=== PATIENT | female | born 1955 | race Caucasian/White ===

== ENCOUNTER 2018-10-07 05:44 | Inpatient (IN) | payer BC ==
--- NOTE | 2018-09-24 20:28 | HP ---
HISTORY AND PHYSICAL: DATE OF ADMISSION/SURGERY: 10/07/18 DATE OF OFFICE VISIT: 09/24/18 SURGEON: Fern Reed MD* (dictated by PENNY Peterson). PROCEDURE: Bilateral total knee arthroplasty. CHIEF COMPLAINT: Bilateral knee pain. HISTORY OF PRESENT ILLNESS: Ms. Reese is a 63-year-old female with bilateral knee pain secondary to end-stage osteoarthritis. She has failed conservative treatment and elected to proceed with a bilateral total knee arthroplasty. PAST MEDICAL HISTORY: RA, autoimmune inflammatory polyarthropathy, essential thrombocythemia, hypertension, and hypothyroidism. PAST SURGICAL HISTORY: Hysterectomy, hernia repair, cervical fusion, trigger thumb release, right knee scope and carpal tunnel release. CURRENT MEDICATIONS: 1. Fluticasone nasal spray as needed. 2. Flexeril 5 mg 3 times a day as needed. 3. Folic acid. 4. Colace. 5. Pantoprazole sodium 40 mg twice a day. 6. Levothroid 112 mcg daily. 7. Sudafed twice a day as needed. 8. FiberCon. 9. Benazepril 20 mg daily. 10. BuSpar 15 mg half a tablet 3 times a day. 11. Tylenol With Codeine every 6 hours as needed. 12. Verapamil 180 mg daily. 13. Ipratropium bromide 2 sprays in each nostril twice a day. 14. Gabapentin 300 mg 3 times a day. 15. Iron 65 mg daily. 16. Vitamin C. 17. Hydrea 500 mg 2 capsules twice a day. 18. Montelukast sodium 10 mg daily. 19. Mucinex as needed daily. 20. Multivitamin. 21. Valtrex. ALLERGIES: To DEMEROL, VIOXX, HUMIRA, LYRICA, CYMBALTA, and SIMPONI. FAMILY HISTORY: Diabetes, COPD, and RA. SOCIAL HISTORY: She is a 63-year-old female. She lives with her . She does not smoke or use drugs. Denies use of alcohol. REVIEW OF SYSTEMS: A complete 14-point review of systems was reviewed with the patient. It was positive for essential thrombocythemia as well as hypothyroidism. She denies history of DVT, PE, hepatitis, HIV, or anesthesia problems. PHYSICAL EXAMINATION GENERAL: She is well developed, well nourished, in no acute distress. VITAL SIGNS: She stands 5 feet 3 inches tall, weighs 215 pounds, her blood pressure is 146/90, and her heart rate is 96. HEENT: Normocephalic, atraumatic. NECK: Supple. No palpable lymph nodes. PULMONARY: The lungs are clear to auscultation bilaterally. CARDIO: Regular rate and rhythm. Strong S1, S2. ABDOMEN: Soft, nontender, nondistended. MUSCULOSKELETAL: Bilateral lower extremities: The skin is intact. There are no open wounds or abrasions. There is moderate bilateral joint effusion. She has some tenderness over the medial and lateral joint line. Range of motion is 10 to 120 degrees of both knees with significant patellofemoral crepitus. She has a 2+ dorsalis pedis pulses, intact sensation in her lower extremity. Muscle group strengths are intact at 5/5. NEUROLOGICAL: She is alert, and oriented x3. ASSESSMENT AND PLAN: Ms. Reese is a 63-year-old female with bilateral knee pain secondary to end-stage osteoarthritis. She has failed conservative treatment and elected to proceed with a bilateral total knee arthroplasty, the surgery is scheduled for 10/07/[address] Reed discussed the risks and the benefits of the surgery at today's visit and all of her questions were answered. She will follow up with Dr. Reed 2 weeks after the surgery. PENNY PETERSON [id number]/CPS #: [id number] MTDD
[~2018-10-07 05:44] MED LIST: Buffered Lidocaine 0.9% SYRIN* 5 ML/SYR SYRINGE INTRADERM ONE; Tranexamic Acid 1,000 MG in NS 0.9% 50 ML* (outpatient use) IV SCH
[2018-10-07] MEDS ORDERED: Propofol* 10 MG/ML 20 ML BTL ONE (06:37)
[2018-10-07] MEDS ORDERED: Lidocaine 2% PF * 5 ML VIAL ONE ×2 (06:38→08:35)
[2018-10-07] MEDS ORDERED: Rocuronium* 10 MG/ML VIAL ONE ×2 (06:38→10:35)
[2018-10-07] MEDS ORDERED: EPINEPHRINE 1 MG/ML 1 ML VIAL ONE (06:41)
[2018-10-07] MEDS ORDERED: ROPIVACAINE 5 MG/ML 30 ML BTL (0.5%) ONE (06:41)
[2018-10-07] MEDS ORDERED: ceFAZolin 2 GM PREMIX in ORs 2 GM/50 ML BAG IVPB ONE (07:44)
[2018-10-07] MEDS ORDERED: fentaNYL* 50 MCG/ML 2 ML VIAL (100 MCG VIAL) ONE (08:12)
[2018-10-07] MEDS ORDERED: Midazolam* 1 MG/ML 2 ML VIAL (2 MG) ONE (08:12)
[2018-10-07] MEDS ORDERED: Phenylephrine INJ* 10 MG/ML 1 ML VIAL (10 MG) ONE (08:18)
[2018-10-07] MEDS ORDERED: Scopolamine 1.5 mg* PATCH ONE (08:35)
[2018-10-07] MEDS ORDERED: Bupivacaine 0.5% PF 10 ML VIAL INJ ONE (08:59)
[2018-10-07] MEDS ORDERED: Metoclopramide IV* 5 MG/ML 2 ML VIAL ONE (09:57)
[2018-10-07] MEDS ORDERED: Ondansetron INJ* 2 MG/ML VIAL ONE (09:57)
[2018-10-07] MEDS ORDERED: Dexamethasone IV* 4 MG/ML 1 ML (4 MG) ONE (09:57)
[2018-10-07] MEDS ORDERED: Ketorolac INJ* 30 MG/ML 1 ML VIAL ONE (09:57)
[2018-10-07] MEDS ORDERED: KETAMINE HCL* 50 MG/ML 10 ML VIAL ONE (10:15)
[2018-10-07] MEDS ORDERED: HYDROmorphone INJ1* 1 MG/ML SYRINGE ONE ×3 (12:32→15:04)
[2018-10-07] MEDS ORDERED: Acetaminophen IV 1GM/100ML * 100 ML ONE (12:37)
[2018-10-07] MEDS ORDERED: Neostigmine Methylsulfate* 2 MG/2 ML SYRINGE ONE (13:04)
[2018-10-07] MEDS ORDERED: Sugammadex * 200 MG/2 ML VIAL IV PUSH ONE (13:05)
[2018-10-07] MEDS ORDERED: VASOPRESSIN 20 UNITS/ML 1 ML VIAL ONE (13:30)
[2018-10-07] MEDS ORDERED: DiMENhydriNATE IV* 50 MG/ML VIAL IV PUSH PRN (13:40)
[2018-10-07] MEDS ORDERED: Naloxone* 0.4 MG/ML 1 ML VIAL IV PRN (13:40)
[2018-10-07] MEDS ORDERED: oxyCODONE/Acetamin 5/325 MG* TAB PO PRN (14:32)
[2018-10-07] MEDS ORDERED: Polyethylene Glycol 3350* 17 GM PACKET PO PRN (14:32)
[2018-10-07] MEDS ORDERED: Cyclobenzaprine TAB* 10 MG PO PRN (14:32)
[2018-10-07] MEDS ORDERED: diPHENhydraMINE PO* 25 MG PO PRN (14:32)
[2018-10-07] MEDS ORDERED: Bisacodyl SUPP* 10 MG SUPP PR PRN (14:32)
[2018-10-07] MEDS ORDERED: traZODone TAB* 50 MG TAB PO PRN (14:32)
[2018-10-07] MEDS ORDERED: Ondansetron INJ* 2 MG/ML VIAL IV PRN (14:32)
[2018-10-07] MEDS ORDERED: Ondansetron ODT TAB* 4 MG PO PRN (14:32)
[2018-10-07] MEDS ORDERED: diPHENhydraMINE IV* 50 MG/ML 1 ml VIAL (BENADRYL) IV PRN (14:32)
[2018-10-07] MEDS ORDERED: busPIRone TAB* 15 MG PO PRN (14:45)
[2018-10-07] MEDS ORDERED: Furosemide TAB* 40 MG PO PRN (14:45)
[2018-10-07] MEDS ORDERED: Pseudoephedrine TAB* 30 MG PO PRN (14:45)
[2018-10-07] MEDS: HYDROmorphone INJ1* 1 MG/ML SYRINGE IV PRN ×2 (14:46→14:56)
[2018-10-07] MEDS ORDERED: oxyCODONE/Acetamin 5/325 MG* TAB ONE (14:51)
[2018-10-07] MEDS: oxyCODONE/Acetamin 5/325 MG* TAB PO PRN ×4 (14:54→21:53)
[2018-10-07] MEDS ORDERED: Acetaminophen TAB* 325 MG PO SCH (15:00)
--- NOTE | 2018-10-07 16:05 | PN ---
Progress Note - Progress Note Date of Service: 10/07/18 SOAP: Patient seen and examined at bedside in pacu, she is POD [address] sp [address] TK with Dr Reed. She had general anesthesia. BL LE with DF/PF intact, DP2+, sensation intact distally. DVT prophylaxis is eliquis 2.5 mg po BID
[2018-10-07] MEDS: Morphine VIAL* 4 MG/ML VIAL (1 ml vial) IV PRN (17:27)
[2018-10-07] MEDS: traMADol TAB* 50 MG PO PRN (18:35)
[2018-10-07] MEDS: oxyCODONE TAB* 5 MG TAB PO PRN ×2 (19:37→23:46)
[2018-10-07] MEDS: ceFAZolin 1 GM in Dextrose (*) 1 GM/50 ML BAG IVPB SCH (19:44)
[2018-10-07] MEDS: Acetaminophen TAB* 325 MG PO SCH (20:23)
[2018-10-07] MEDS: Omeprazole CAP* 20 MG PO SCH (21:51)
[2018-10-07] MEDS: Gabapentin CAP(*) 300 MG PO SCH (21:52)
[2018-10-07] MEDS: Docusate CAP* 100 MG PO SCH (21:52)
[2018-10-07] MEDS: HydroxyUREA CAP* 500 MG CAP PO SCH (21:54)
[2018-10-07] MEDS: Apixaban* 2.5 MG TAB PO SCH (21:54)
[2018-10-07] MEDS: Verapamil SR CAP* 180 MG PO SCH (21:55)
[2018-10-07] MEDS: Magnesium Hydroxide LIQ* 30 ML UDC PO PRN ×2 (21:56→21:59)
[2018-10-07] MEDS: Magnesium Hydroxide LIQ* 30 ML UDC PO SCH (22:17)
[2018-10-07] MEDS: IPRATROPIUM BR 0.06% BOTH NARES SCH (22:20)
[2018-10-08] MEDS: traMADol TAB* 50 MG PO PRN ×2 (01:29→10:20)
[2018-10-08] MEDS: oxyCODONE/Acetamin 5/325 MG* TAB PO PRN ×5 (02:45→20:55)
[2018-10-08] MEDS: ceFAZolin 1 GM in Dextrose (*) 1 GM/50 ML BAG IVPB SCH ×2 (04:25→11:47)
[2018-10-08] MEDS: oxyCODONE TAB* 5 MG TAB PO PRN ×4 (04:26→23:24)
[2018-10-08] MEDS: Acetaminophen TAB* 325 MG PO SCH ×3 (04:29→21:05)
[2018-10-08 06:03] LABS: Hematocrit 30 % (35-47); Hemoglobin 10.9 g/dl (12.0-16.0); Mean Platelet Volume 6.9 fL (7.4-10.4); Platelet Count 427 10^3/ul (150-450)
[2018-10-08] MEDS: Levothyroxine TAB* 112 MCG TAB PO SCH (06:13)
[2018-10-08 07:14] LABS: EGFR Non-African American 91.8 (>60)
[2018-10-08] MEDS: IPRATROPIUM BR 0.06% BOTH NARES SCH ×2 (08:25→20:55)
[2018-10-08] MEDS: HydroxyUREA CAP* 500 MG CAP PO SCH ×2 (08:26→20:54)
[2018-10-08] MEDS: Magnesium Hydroxide LIQ* 30 ML UDC PO SCH ×2 (08:27→20:55)
[2018-10-08] MEDS: Apixaban* 2.5 MG TAB PO SCH ×2 (08:27→20:54)
[2018-10-08] MEDS: Omeprazole CAP* 20 MG PO SCH ×2 (08:27→20:55)
[2018-10-08] MEDS: Docusate CAP* 100 MG PO SCH ×2 (08:27→20:54)
[2018-10-08] MEDS: Cholecalciferol TAB* 1000 UNITS PO SCH (08:27)
[2018-10-08] MEDS: Folic Acid TAB* 1 MG PO SCH (08:27)
[2018-10-08] MEDS: Gabapentin CAP(*) 300 MG PO SCH ×3 (08:27→20:54)
[2018-10-08] MEDS: Montelukast Sodium TAB* 10 MG PO SCH (08:27)
--- NOTE | 2018-10-08 09:24 | PN ---
Progress Note - Progress Note Date of Service: 10/08/18 SOAP: Subjective: [] Patient seen and examined at bedside. She feels well without CP, SOB, dizziness, nausea. Her bilateral knee pain is present but tolerable at this time. HR has been elevated since PACU, patient is without CP, SOB, feeling of irregular beats. Objective: []General: Well appearing, NAD BL LE; Dressings CDI, thighs soft, DF/PF intact, DP2+, sensation intact to light touch distally. Calves are supple and nontender without erythema, edema or palpable cords. Radial pulse is fast but regular to palpation Assessment: []POD 1 sp bilateral total knee replacements Plan: []WBAT PT/OT Eliquis 2.5 mg po BID x 30 days Optimize pain control discussed with nursing Medicine consult in place Vital Signs Temp 98.0 F 10/08/18 07:19 Pulse 124 10/08/18 07:31 Resp 18 10/08/18 08:27 BP 166/68 10/08/18 07:19 Pulse Ox 96 10/08/18 07:19 Intake & Output 10/07/18 10/08/18 10/08/18 18:59 06:59 18:59 Intake Total 2150 1716 480 Output Total 1600 925 Balance 550 791 480 Weight 210 lb Intake: IV Fluids 2150 896 LR 2100 896 NS 50ML, Cefazolin 2G 50 IVPB 50 ABX - CEFAZOLIN 50 Oral 770 480 Output: Patino 900 925 Estimated Blood Loss 700 Other: Estimated Void Medium Estimated Blood Loss L:300ML, R:400ML Comment Laboratory Last Values Hgb 10.9 g/dl (12.0-16.0) L 10/08/18 05:37 Hct 30 % (35-47) L 10/08/18 05:37 Plt Count 427 10^3/ul (150-450) 10/08/18 05:37 MPV 6.9 fL (7.4-10.4) L 10/08/18 05:37 Sodium 134 mmol/L (135-145) L 10/08/18 05:37 Potassium 3.4 mmol/L (3.5-5.0) L 10/08/18 05:37 Chloride 99 mmol/L (101-111) L 10/08/18 05:37 Carbon Dioxide 27 mmol/L (22-32) 10/08/18 05:37 Anion Gap 8 mmol/L (2-11) 10/08/18 05:37 BUN 13 mg/dL (6-24) 10/08/18 05:37 Creatinine 0.65 mg/dL (0.51-0.95) 10/08/18 05:37 Est GFR ( Amer) 111.0 (>60) 10/08/18 05:37 Est GFR (Non-Af Amer) 91.8 (>60) 10/08/18 05:37 BUN/Creatinine Ratio 20.0 (8-20) 10/08/18 05:37 Glucose 117 mg/dL (70-100) H 10/08/18 05:37 Calcium 8.8 mg/dL (8.6-10.3) 10/08/18 05:37
[2018-10-08] MEDS: Morphine VIAL* 4 MG/ML VIAL (1 ml vial) IV PRN ×2 (10:20→14:58)
--- NOTE | 2018-10-08 11:58 | OP ---
OPERATIVE NOTE: DATE OF OPERATION: 10/07/18 DATE OF : 53 ATTENDING SURGEON: Fern Reed MD AUT[employer] BODY SHOP MANAGER: PENNY Esteves. Ms. Epstein did help throughout the procedure with preparation of the legs, wound retraction, julia pulation of the knees, and wound closures. ANESTHESIOLOGIST: Dr. Salcedo. ANESTHESIA: General with bilateral adductor canal block. PRE-OP DIAGNOSIS: Severe end-stage degenerative osteoarthritis of the bilateral knees as well as rhe umatoid arthritic changes. POST-OP DIAGNOSIS: Severe end-stage degenerative osteoarthritis of the bilateral knees as well as rh eumatoid arthritic changes. OPERATIVE PROCEDURE: Bilateral total knee arthroplasty. COMPLICATIONS: None. ESTIMATED BLOOD LOSS: 700 mL total. TOURNIQUET TIME: Left knee 45 minutes; right knee 51 minutes. SPECIMENS: Cartilage and bone from each side of the knee, sent to Pathology. HARDWARE USED: This is cemented [employer] total knee arthroplasty hardware. Two packages of S implex bone cement were used for each side. For the right knee, a size 5 Oxinium posterior stabilize d Legion femoral component. For the tibia, a size 3 right tibial base plate, Elisha II. For the in sert, a 13-mm constrained articular insert size 3-4. For the patella, a 32-mm three-peg all-poly pat gui. For the left knee, a left posterior stabilized Oxinium size 5 Legion femoral component. For the tibi a, a Elisha II size 3 left tibial base plate. For the insert, a 13-mm posterior stabilized articula r insert, size 3-4. For the patella, a 32-mm three-peg all-poly patella. BRIEF HISTORY/INDICATION: Ms. Reese is a 63-year-old female with years of increasingly severe pain in her bilateral knees. She has osteoarthritic changes as well as longstanding chronic rheumatoid ar thritis. She failed conservative treatment with antiinflammatories, pain medication, intra-articular injection, and physical therapy. She had severe chronic daily pain and elected to undergo total kne e arthroplasty. Radiographs showed ajrt-od-rhuw arthritis. The patient elected to undergo bilateral total knee arthroplasty. She understood the risks of surgery including, but were not limited to ble eding, infection, damage to nearby structures, continued pain, need for further surgery, intraoperati ve fracture, nerve palsy, hardware failure or loosening, knee stiffness, loss of motion, stroke, hear t attack, blood clot and . She wished to proceed. She understood I felt these risks were incre ased due to her choice to have bilateral knees done. She wished to proceed. INTRAOPERATIVE FINDINGS: Intraoperatively, the patient was noted to have advanced significant arthri tis of both knees. She had tricompartmental complete full thickness loss of cartilage. She had exte nsive osteophyte formation and deformation bilaterally. The right knee was more severe than the left with chronic subluxation of the tibia laterally. She had an incompetent MCL on the right and a left MCL with laxity by remaining competent on the left. Intraoperatively, the patient was noted to have significant osteopenia. DESCRIPTION OF PROCEDURE: Ms. Reese was identified in the preanesthesia unit. Her bilateral knees w ere marked. Consent was signed and placed in the chart. The patient was taken to the operating room and placed under anesthesia without difficulty. A Patino catheter was placed. Tourniquets were plac ed on both sides. The bilateral lower extremities were prepped and draped in the usual sterile fashio n. Preop time-out was made to correctly identify the patient's side and site. Appropriate periopera tive antibiotics were given within 1 hour of incision. The left side was performed first. Tourniquet was inflated and total tourniquet time was 45 minutes. A midline incision was made with a 10-blade and carried down to the extensor mechanism. A new 10-b lade was used to make a standard medial parapatellar arthrotomy. The patella was subluxed laterally. Extensive amount of chips were carefully removed with electrocautery. Electrocautery was used to s ubperiosteally elevate the soft tissue off the superomedial tibia to the midsagittal plane. Signific ant osteophytes were noted and were removed with rongeurs. The knee was flexed up. The anterior hor n of the lateral meniscus and ACL were sharply released. A drill was used to enter the distal femur. Intramedullary distal femoral cutting guide was pinned on the distal femur. An oscillating saw was used to make the distal femoral cut. Next, the external rotation guide was pinned on the distal femu r. The distal femur was sized to a size 5. A size 5 multi-cutting jig was pinned on the distal femu r. Oscillating saw was used to make these 4 chamfer cuts. The PCL was completely released and the tibia was subluxed anteriorly. Extramedullary tibial cutting guide was pinned on the proximal tibia. An oscillating saw was used to make the proximal cut perpend icular to the mechanical axis of the tibia. The bone was carefully removed. The knee was brought ou t to full extension. A spacer block had good fit. There was some MCL laxity, although there was com petence. Flexion and extension gaps were well balanced. The knee was flexed up. Lamina spreader operator automatic wa s placed both medially and laterally. Any remaining meniscus was carefully removed using electrocaut miguel. A curved osteotome was used to remove any posterior osteophytes. Tibial tray and drop hugo were placed and confirmed a satisfactory tibial cut. A size left 5 femoral trial was impacted onto the distal femur and had good fit and stability. The b ox for the posterior stabilized implant was prepared using a reamer and box cut osteotome. Size 3 ti bial tray trial with a 13-mm insert trial was placed and the knee was taken through a range of motion . The knee had full extension to 130 degrees of flexion with satisfactory patellofemoral tracking. The patella was everted. A 9-mm of patellar bone and cartilage was carefully removed using an oscill ating saw. The patella was sized to a size 32. Three peg holes were drilled through the size 32 letitia de. A 32 trial patella was placed and the knee was taken through a range of motion. There were sati sfactory patellofemoral tracking. All trials were carefully removed. The tibia was subluxed anteriorly and sized to a size 3. Proxima l tibia was prepared using a size 3 keel punch. All bony cut surfaces were copiously irrigated with sterile saline and dried. Final implants were cemented into place, starting with the tibia, followed by the femur and last the patella. A 13-mm insert trial was placed and the knee was brought out int o full extension. Tourniquet was turned down at 45 minutes. The knee was copiously irrigated with s terile saline. An electrocautery was used to obtain meticulous hemostasis. Once the cement had full y cured, the insert trial was removed. Any excess cement was removed from around the capsule and kayla dware. Final insert chosen was a 13-mm posterior stabilized articular insert size 3-4. This was loc ked into position on the tibial tray without difficulty. Stability of the insert was checked and rec hecked and noted to be stable. The knee was copiously irrigated with sterile saline. The extensor mechanism was closed using interr upted #1 Vicryl. The rest of the incision was closed in a layered fashion using 0 and 2-0 Vicryls. Skin was closed using running 3-0 nylon suture. The knee was covered with sterile Xeroform, 4x4s, an d Webril. A half sheath was placed around this. Attention was next turned to replacement of the right knee. The tourniquet was inflated and total to urniquet time for this procedure was 51 minutes. A midline incision was made and carried down to the extensor mechanism. A new 10-blade was used to make a standard medial parapatellar arthrotomy. The patella was subluxed laterally. Extensive synovitis was carefully excised using electrocautery. Kandice ctrocautery was used to subperiosteally elevate the soft tissue off the superomedial tibia to the mid sagittal plane. Extensive osteophyte was noted and removed with the rongeur. The MCL was incompeten t. There was visible subluxation of the tibia on the femur. The knee was flexed up. There was no A CL. A drill was used to enter the distal femur. Intramedullary distal femoral cutting guide was pin alyssa on the distal femur. The distal femur was sized. The oscillating saw was used to make the dista l femoral cut. Next, the external rotation guide was pinned on the distal femur. The distal femur w as sized to a size 5. A size 5 multi- cutting jig was pinned on the distal femur. Oscillating saw w as used to make the appropriate 4 chamfer cuts. The PCL was completely released. Extramedullary tibial cutting guide was pinned on the proximal tibi a. An oscillating saw was used to make the proximal tibial cut perpendicular to the mechanical axis of the tibia. The bone was carefully removed. The knee was brought out into full extension. A spac er block had good fit. Flexion and extension gaps were well balanced. Once again, the MCL incompeten ce was noted. The knee was flexed up. Lamina spreader operator automatic was placed both medially and laterally. Any remaining meniscus was carefully removed using electrocautery. A curved osteotome was used to remove any posterior osteophytes. Tibial tray and drop hugo were placed and confirmed a satisfactory tibial cut. A size 5 right femoral trial was impacted onto the distal femur and had good fit and stability. The box for the posterior stabilized implant was prepared using a reamer and box cut osteotome. Size 3 t ibial tray trial with a 13-mm insert trial was placed and the knee was taken through a range of motio n. The knee had full extension, 130 degrees of flexion with satisfactory patellofemoral tracking. T he patella was everted. A 9-mm of patellar bone and cartilage was carefully removed using an oscilla ting saw. The patella was sized to a size 32. Three peg holes were drilled through the size 32 guid e. The knee was taken through a range of motion. There was satisfactory patellofemoral tracking. A ll trials were removed. The tibia was subluxed anteriorly and sized to a size 3. Proximal tibia was prepared using a size 3 keel punch. All bony cut surfaces were copiously irrigated with sterile sali ne and dried. Final implants were cemented into place, starting with the tibia, followed by the femu r and last the patella. A 13-mm insert trial was placed and the knee was brought out into full exten chanell. Tourniquet was turned down at 51 minutes. An electrocautery was used to obtain meticulous hemostasis. The knee was copiously irrigated with st erile saline. Once the cement had fully cured, the insert trial was removed. Any excess cement was removed from around the capsule and hardware. Final insert chosen was a 13-mm constrained articular i nsert size 3-4. This was locked into position on the tibial tray. Stability of the insert was check ed and rechecked and noted to be stable. The extensor mechanism was closed using interrupted #1 Vicr yls. The rest of the incision was closed in a layered fashion using 0 and 2-0 Vicryls. Skin was parmjit sed using running 3-0 nylon suture. Sterile Xeroform, 4x4s, and Webril were used to cover the incisi on. Fco wrap and cold pack were placed over this. The patient's left knee also had Fco wrap and cold pack placed. The patient's anesthesia was reverse d without difficulty. She was taken to the PACU in stable condition. Intended weightbearing will be weightbearing as tolerated. Intended DVT prophylaxis will be Eliquis. [id number]/[facility] #: [id number]
[2018-10-08] MEDS ORDERED: Potassium Chlor TAB* 20 MEQ TAB.ER PO ONE (20:45)
[2018-10-08] MEDS: Verapamil SR CAP* 180 MG PO SCH (20:55)
[2018-10-09] MEDS: oxyCODONE/Acetamin 5/325 MG* TAB PO PRN ×4 (02:53→21:14)
[2018-10-09] MEDS: Acetaminophen TAB* 325 MG PO SCH ×3 (03:24→21:15)
--- NOTE | 2018-10-09 04:38 | CONS ---
[facility] MEDICINE CONSULTATION REPORT: DATE OF ADMISSION: 10/07/18 DATE OF CONSULT: 10/08/18 PROVIDER: Marine Ge NP ATTENDING PHYSICIAN: Dr. Reed. CONSULTING PHYSICIAN: Dr. Niki Birmingham (dictated by Marine Ge NP). REASON FOR CONSULT: Comanagement of chronic medical conditions. HISTORY OF PRESENT ILLNESS: Ms. Reese is a 63-year-old female with a past medical history significant for rheumatoid arthritis, hypothyroid, and hypertension, who presented to the [facility] for an elective bilateral total knee arthroplasty with Dr. Reed. Please see H and P dictated by PENNY Delgado , for complete details. In brief, the patient is a 63-year-old female with end- stage osteoarthritis who failed conservative treatment and elected to proceed with bilateral total knee arthroplasty with Dr. Reed. In the immediate postoperative period, the patient has no complaints. She denies any fever or chills. Denies any nausea, vomiting, or diarrhea. Denies any abdominal pain. Denies any chest pain or shortness of breath. Denies any urinary frequency or dysuria. She does currently complain of bilateral knee pain that is currently tolerable. PAST MEDICAL HISTORY: 1. Osteoarthritis. 2. Hypertension. 3. Hypothyroid. 4. Autoimmune inflammatory polyarthropathy. 5. Essential thrombocytopenia. PAST SURGICAL HISTORY: 1. Hysterectomy. 2. Hernia repair. 3. Cervical fusion. 4. Trigger thumb release. 5. Carpal tunnel. 6. Right knee arthroscopy. HOME MEDICATIONS: Include: 1. Fluticasone nasal spray. 2. Flexeril 5 mg p.o. t.i.d. as needed. 3. Folic acid 1 mg p.o. q.a.m. 4. Colace 100 mg p.o. b.i.d. 5. Pantoprazole 40 mg b.i.d. 6. Levothyroxine 112 mcg p.o. daily. 7. Benazepril/hydrochlorothiazide 20/12.5. 8. Verapamil 180 at bedtime. 9. Sudafed 30 mg p.o. q.6 hours as needed. 10. Montelukast sodium 10 mg p.o. daily. 11. Lactobacillus 1 tablet q.a.m. 12. Iron plus 1 tab p.o. daily. 13. Hydroxyurea cap 1000 mg p.o. b.i.d. 14. Gabapentin 300 mg p.o. t.i.d. 15. Furosemide 40 mg p.o. daily p.r.n. 16. Vitamin D 5000 units p.o. daily. 17. Buspirone 15 mg p.o. t.i.d. p.r.n. 18. Vitamin C 1000 mg p.o. daily. 19. Acetaminophen with Codeine 1 tablet p.o. q.6 hours as needed. ALLERGIES: 1. ENBREL. 2. DOXYCYCLINE. 3. GLUTEN. 4. LEFLUNOMIDE. 5. ABATACEPT. 6. CYMBALTA. 7. HUMIRA. 8. SIMPONI. 9. DEMEROL. 10. LYRICA. 11. VIOXX. FAMILY HISTORY: Mother with a history of mitral valve disease. No reported history of diabetes or cancer in the family. SOCIAL HISTORY: Denies any smoking, alcohol, or illicit drug use. Surrogate maker in the event she is unable to make her own decisions is her daughter. She lives with her . She is a full code. REVIEW OF SYSTEMS: There is no fever. No chills. No unintended weight loss. Cardiac: No chest pain or edema. Respiratory: No cough, congestion, hemoptysis, or shortness of breath. GI: No nausea, vomiting, or diarrhea. No abdominal pain. : Denies any dysuria or hematuria or frequency. Neurologic: She denies any sensory loss or focal weakness. ENT: Denies any dysphagia. Denies any increased arthralgias or myalgias. No skin rashes. Denies any depression or anxiety. PHYSICAL EXAM: Vital Signs: Temperature was 98.7, heart rate 116, respirations 16, O2 saturation is 94%, blood pressure 137/62. General: Ms. Reese is a 63-year- old female. She is sitting in the chair. She does not appear to be in acute distress. Neurologic: She is alert and oriented x3. She is able to move all extremities. She does have dressings intact to bilateral knees. Pedal pulses are intact. Heart: S1, S2. Regular rate and rhythm. No murmurs, rubs, or gallops. Lungs are clear to auscultation bilaterally. No wheezes, rales, or rhonchi. Abdomen is soft and nontender. Bowel sounds are present x4. Extremities: Without cyanosis or edema. DIAGNOSTIC STUDIES/LAB DATA: Hemoglobin is 10.9 and hematocrit is 30, platelet count is 427. Sodium 134, potassium 3.4, chloride is 99, carbon dioxide is 27, anion gap was 8, BUN was 13, creatinine 0.65, glucose is 117, calcium 8.8. Urine on 09/24/18 was dark, clear, pH was 6.0, specific gravity was 1.008. Urine protein, ketones, blood, nitrites, bilirubin, urobilinogen and leukocyte esterase were negative. Glucose was negative. Ascorbic acid was negative. IMPRESSION AND PLAN: Ms. Reese is a 63-year-old female with past medical history significant for rheumatoid arthritis, hypertension, hypothyroid who presented to [facility] for an elective bilateral total knee arthroplasty with Dr. Reed. In the immediate postoperative period, she has no complaints. Our recommendations are as follows: 1. Status post bilateral total knee arthroplasty, management per Orthopedics. PT/OT per Orthopedics. Bowel regimen per Orthopedics. 2. I would resume her benazepril, but we will order lisinopril 20 mg p.o. daily. I will hold her hydrochlorothiazide 12.5 at this time and resume as able. 3. Hypothyroid. I would continue her levothyroxine as previously prescribed. 4. Tachycardia. The patient has baseline tachycardia. Her preadmission heart rate was 110. The patient reports that she is chronically at 110. She has been on verapamil for several years. At this time, I would continue her verapamil. She does report that recently, she had her verapamil changed from b.i.d. to daily. If she remains tachycardic, we could increase her verapamil back to b.i.d. dosing. At this time, she is a low probability for pulmonary embolism as this is her baseline tachycardia. She is also on Eliquis. The patient is asymptomatic. She is not hypoxic. She has no complaints of shortness of breath, though pulmonary embolism should remain on the differential. I think it is low probability at this time and she does not need further imaging at this time. If the patient does become symptomatic, I would recommend a CTA of the chest. 5. Hypokalemia. I will give her 40 mEq of potassium. Repeat a BMP in the a.m. 6. DVT prophylaxis. Per the Orthopedics. 7. Code status. She is a full code. TIME SPENT: Time spent on this consultation was 45 minutes, more than half of that time was spent with the patient reviewing events leading thus far to her hospitalization, performing physical exam, and reviewing my plan of care. MARINE GE, SCALE OPERATOR [id number]/[facility] #: [id number] HENRI
[2018-10-09] MEDS: Levothyroxine TAB* 112 MCG TAB PO SCH (05:45)
[2018-10-09] MEDS: oxyCODONE TAB* 5 MG TAB PO PRN ×3 (05:45→17:00)
[2018-10-09 06:49] LABS: Hematocrit 30 % (35-47); Hemoglobin 10.4 g/dl (12.0-16.0); Mean Platelet Volume 6.8 fL (7.4-10.4); Platelet Count 472 10^3/ul (150-450)
[2018-10-09 07:04] LABS: EGFR Non-African American 96.9 (>60)
[2018-10-09] MEDS: IPRATROPIUM BR 0.06% BOTH NARES SCH ×2 (08:12→21:16)
[2018-10-09] MEDS: HydroxyUREA CAP* 500 MG CAP PO SCH ×2 (08:13→21:15)
[2018-10-09] MEDS: Apixaban* 2.5 MG TAB PO SCH ×2 (08:14→21:14)
[2018-10-09] MEDS: Cholecalciferol TAB* 1000 UNITS PO SCH (08:14)
[2018-10-09] MEDS: Omeprazole CAP* 20 MG PO SCH ×2 (08:15→21:14)
[2018-10-09] MEDS: Montelukast Sodium TAB* 10 MG PO SCH (08:15)
[2018-10-09] MEDS: Folic Acid TAB* 1 MG PO SCH (08:15)
[2018-10-09] MEDS: Docusate CAP* 100 MG PO SCH ×2 (08:15→21:14)
[2018-10-09] MEDS: Gabapentin CAP(*) 300 MG PO SCH ×3 (08:15→21:14)
[2018-10-09] MEDS: Magnesium Hydroxide LIQ* 30 ML UDC PO SCH ×2 (08:16→21:15)
[2018-10-09] MEDS ORDERED: Lisinopril TAB* 10 MG PO SCH (09:00)
--- NOTE | 2018-10-09 10:09 | PN ---
Progress Note - Progress Note Date of Service: 10/09/18 SOAP: Subjective: []Patient seen and examined at bedside. She feels well, knee pain is well controlled. SHe is still requiring 2 assist to mobilize and does not feel her would be enough help at home today, she anticipates DC home tomorrow. Denies CP, SOB, dizziness, nausea. Her HR remains elevated, she confirms it has routinely been elevated to 110 at home and at times 130 pre-operatively. Objective: []General: Well appearing, NAD BL LE: Dressings changed, incisions CDI, thighs soft, DF/PF intact, DP2+, sensation intact to light touch distally. Calves are supple and nontender without erythema, edema or palpable cords. Radial pulse is fast but regular to palpation Assessment: []POD 2 sp bilateral total knee replacements Plan: []WBAT PT/OT Eliquis 2.5 mg po BID x 30 days DC home tomorrow Will discuss restarting BID verapamil as she previously took or other rate control with medicine. Vital Signs Temp 98.8 F 10/09/18 07:23 Pulse 116 10/09/18 07:23 Resp 18 10/09/18 08:15 BP 140/65 10/09/18 07:23 Pulse Ox 95 10/09/18 07:49 Intake & Output 10/08/18 10/09/18 10/09/18 18:59 06:59 18:59 Intake Total 1711 680 240 Output Total 700 0 Balance 1011 680 240 Intake: IV Fluids 1111 ABX - CEFAZOLIN 110 LR 1001 Oral 600 680 240 Output: Urine 700 0 Other: Estimated Void Medium Medium Date of Last Bowel 10/09/18 Movement # Bowel Movements 1 Estimated Stool Amount Large # Voids 1 Laboratory Last Values Hgb 10.4 g/dl (12.0-16.0) L 10/09/18 06:38 Hct 30 % (35-47) L 10/09/18 06:38 Plt Count 472 10^3/ul (150-450) H 10/09/18 06:38 MPV 6.8 fL (7.4-10.4) L 10/09/18 06:38 Sodium 133 mmol/L (135-145) L 10/09/18 06:38 Potassium 4.0 mmol/L (3.5-5.0) 10/09/18 06:38 Chloride 98 mmol/L (101-111) L 10/09/18 06:38 Carbon Dioxide 27 mmol/L (22-32) 10/09/18 06:38 Anion Gap 8 mmol/L (2-11) 12 06:38 BUN 11 mg/dL (6-24) 12 06:38 Creatinine 0.62 mg/dL (0.51-0.95) 12 06:38 Est GFR ( Amer) 117.3 (>60) 12 06:38 Est GFR (Non-Af Amer) 96.9 (>60) 12 06:38 BUN/Creatinine Ratio 17.7 (8-20) 10/09/18 06:38 Glucose 127 mg/dL (70-100) H 10/09/18 06:38 Calcium 8.6 mg/dL (8.6-10.3) 10/09/18 06:38
[2018-10-09] MEDS: Verapamil SR CAP* 180 MG PO SCH ×2 (13:21→21:14)
--- NOTE | 2018-10-09 19:58 | PN ---
Subjective Date of Service: 10/09/18 Interval History: Seen earlier this morning in her room. She denies any chest pain or dyspnea outside her baseline exertional dyspnea which is chronic not any worse than her base line at home. She remains tacchycardic. EKG obtained and confirmed simply Sinus tacchycardia rate of 114's. Family History: Unchanged from Admission Social History: Unchanged from Admission Past Medical History: Unchanged from Admission Objective Active Medications: Acetaminophen (Tylenol Tab*) 975 mg PO 0400,1200,2000 [facility] Last Admin: 10/09/18 10:59 Dose: Not Given Apixaban (Eliquis*) 2.5 mg PO BID [facility] Last Admin: 10/09/18 08:14 Dose: 2.5 mg Bisacodyl (Dulcolax Supp*) 10 mg [place] DAILY PRN PRN Reason: constipation Buspirone HCl (Buspar Tab *) 15 mg PO TID PRN PRN Reason: ANXIETY Cholecalciferol (Vitamin D Tab*) 5,000 units PO DAILY [facility] Last Admin: 10/09/18 08:14 Dose: 5,000 units Cyclobenzaprine HCl (Flexeril Tab*) 10 mg PO TID PRN PRN Reason: SPASMS Last Admin: 10/08/18 02:52 Dose: 10 mg Diphenhydramine HCl (Benadryl Iv*) 25 mg IV Q6H PRN PRN Reason: itching Diphenhydramine HCl (Benadryl Po*) 25 mg PO Q6H PRN PRN Reason: itching Docusate Sodium (Colace Cap*) 100 mg PO BID [facility] Last Admin: 10/09/18 08:15 Dose: 100 mg Folic Acid (Folvite Tab*) 1 mg PO QAM [facility] Last Admin: 10/09/18 08:15 Dose: 1 mg Furosemide (Lasix Tab*) 40 mg PO DAILY PRN PRN Reason: edema Gabapentin (Neurontin Cap(*)) 300 mg PO TID [facility] Last Admin: 10/09/18 14:02 Dose: 300 mg Hydroxyurea (Hydrea Cap*) 1,000 mg PO BID [facility] Last Admin: 10/09/18 08:13 Dose: 1,000 mg Lactated Ringer's (Lactated Ringers 1000 Ml Bag*) 1,000 mls @ 100 mls/hr IV PER RATE [facility] Last Admin: 10/08/18 01:34 Dose: 100 mls/hr Ipratropium [place] (Ipratropium [place]) 0 ml BOTH NARES BID [facility] Last Admin: 10/09/18 08:12 Dose: 15 ml Lactulose (Lactulose*) 30 ml PO Q6H PRN PRN Reason: constipation Levothyroxine Sodium (Synthroid Tab*) 112 mcg PO DAILY@0600 [facility] Last Admin: 10/09/18 05:45 Dose: 112 mcg Lisinopril (Prinivil Tab*) 10 mg PO DAILY [facility] Magnesium Hydroxide (Milk Of Magnesia Liq*) 30 ml PO BID [facility] Last Admin: 10/09/18 08:16 Dose: Not Given Magnesium Hydroxide (Milk Of Magnesia Liq*) 30 ml PO Q6H PRN PRN Reason: constipation Last Admin: 10/07/18 21:59 Dose: 30 ml Montelukast Sodium (Singulair Tab*) 10 mg PO DAILY [facility] Last Admin: 10/09/18 08:15 Dose: 10 mg Morphine Sulfate (Morphine Vial*) 2 mg IV Q2H PRN PRN Reason: PAIN Last Admin: 10/08/18 14:58 Dose: 2 mg Omeprazole (Prilosec Cap*) 20 mg PO BID [facility] Last Admin: 10/09/18 08:15 Dose: 20 mg Ondansetron HCl (Zofran Inj*) 4 mg IV Q6H PRN PRN Reason: nausea Ondansetron HCl (Zofran Odt Tab*) 4 mg PO Q6H PRN PRN Reason: NAUSEA Oxycodone HCl (Roxycodone Tab*) 10 mg PO Q4H PRN PRN Reason: PAIN Last Admin: 10/09/18 17:00 Dose: 10 mg Oxycodone/Acetaminophen (Percocet 5/325 Tab*) 1 tab PO Q4H PRN PRN Reason: PAIN Oxycodone/Acetaminophen (Percocet 5/325 Tab*) 2 tab PO Q4H PRN PRN Reason: PAIN Last Admin: 10/09/18 13:22 Dose: 2 tab Polyethylene Glycol/Electrolytes (Miralax*) 17 gm PO DAILY PRN PRN Reason: Constipation Pseudoephedrine HCl (Sudafed Tab*) 30 mg PO Q6H PRN PRN Reason: Allergy Symptoms Tramadol HCl (Ultram*) 50 mg PO Q6H PRN PRN Reason: PAIN Last Admin: 10/08/18 10:20 Dose: 50 mg Trazodone HCl (Desyrel Tab*) 25 mg PO BEDTIME PRN PRN Reason: insomnia Verapamil HCl (Calan Sr Cap*) 180 mg PO BID [facility] Last Admin: 10/09/18 13:21 Dose: 180 mg Vital Signs - 8 hr 10/09/18 10/09/18 10/09/18 13:22 13:23 14:02 Temperature Pulse Rate Respiratory 20 20 18 Rate Blood Pressure (mmHg) O2 Sat by Pulse Oximetry 10/09/18 10/09/18 10/09/18 15:22 16:00 16:16 Temperature 98.7 F Pulse Rate 116 Respiratory 16 18 Rate Blood Pressure 114/64 (mmHg) O2 Sat by Pulse 97 97 Oximetry 10/09/18 10/09/18 17:00 19:01 Temperature Pulse Rate Respiratory 18 18 Rate Blood Pressure (mmHg) O2 Sat by Pulse Oximetry Oxygen Devices in Use Now: None Appearance: awake, alert. no distress Eyes: PERRLA, - - EOMI Ears/Nose/Mouth/Throat: NL Teeth, Lips, Gums Neck: NL Appearance and Movements; NL JVP, Trachea Midline Respiratory: Symmetrical Chest Expansion and Respiratory Effort, Clear to Auscultation Cardiovascular: NL Sounds; No Murmurs; No JVD, No Edema Abdominal: NL Sounds; No Tenderness; No Distention Extremities: No Edema Neurological: Alert and Oriented x 3 Result Diagrams: 10/09/18 06:38 10/09/18 06:38 Assess/Plan/Problems-Billing Assessment: 63 year old female s/p bilateral knee arthroplasty, medicine consulted for co- management found to be tacchcyardia consistent with reflex/rebound tacchycardia most likely withdrawal form calcium channel. - Patient Problems (1) Sinus tachycardia Current Visit: Yes Status: Acute Code(s): R00.0 - TACHYCARDIA, UNSPECIFIED SNOMED Code(s): 34977461 Comment: - EKG confirmed sinus tacchycardia - CXR no acute disease - Pain control and monitor H/H (did not shows signficant decrease) - Will increase verapamil to 180 mg bid (2) Hypertension Current Visit: Yes Status: Acute Code(s): I10 - ESSENTIAL (PRIMARY) HYPERTENSION SNOMED Code(s): 21046074 Comment: Will increase verapamil to 180 mg bid secondary to reflex sinus tacchcyardia (3) History of total bilateral knee replacement Current Visit: Yes Status: Acute Code(s): Z96.653 - PRESENCE OF ARTIFICIAL KNEE JOINT, BILATERAL SNOMED Code(s): 1471885311487
[2018-10-10] MEDS: oxyCODONE TAB* 5 MG TAB PO PRN ×4 (00:12→22:36)
[2018-10-10] MEDS: oxyCODONE/Acetamin 5/325 MG* TAB PO PRN ×4 (04:09→19:39)
[2018-10-10] MEDS: Acetaminophen TAB* 325 MG PO SCH ×3 (04:25→23:35)
[2018-10-10] MEDS: Levothyroxine TAB* 112 MCG TAB PO SCH (05:35)
[2018-10-10 05:56] LABS: Hematocrit 26 % (35-47); Hemoglobin 9.3 g/dl (12.0-16.0); Platelet Count 452 10^3/ul (150-450)
[2018-10-10] MEDS: Gabapentin CAP(*) 300 MG PO SCH ×3 (07:43→22:37)
[2018-10-10] MEDS: Cholecalciferol TAB* 1000 UNITS PO SCH (07:43)
[2018-10-10] MEDS: Folic Acid TAB* 1 MG PO SCH (07:44)
[2018-10-10] MEDS: Apixaban* 2.5 MG TAB PO SCH ×2 (07:44→22:35)
[2018-10-10] MEDS: Docusate CAP* 100 MG PO SCH ×2 (07:44→22:37)
[2018-10-10] MEDS: Montelukast Sodium TAB* 10 MG PO SCH (07:44)
[2018-10-10] MEDS: Omeprazole CAP* 20 MG PO SCH ×2 (07:44→23:37)
[2018-10-10] MEDS: IPRATROPIUM BR 0.06% BOTH NARES SCH ×2 (07:45→22:35)
[2018-10-10] MEDS: HydroxyUREA CAP* 500 MG CAP PO SCH ×2 (07:45→22:37)
[2018-10-10] MEDS: Magnesium Hydroxide LIQ* 30 ML UDC PO SCH ×2 (07:58→22:29)
--- NOTE | 2018-10-10 08:37 | PN ---
Subjective Date of Service: 10/10/18 Interval History: Patient seen this morning. She feels good, denies any chest pain or dizziness. Her BP this morning systolic in the 97/78 (lower with faster pulse)! Labs noted to have elevated FT4 1.88 (high normal 1.14). Discussed with nursing staff to stop the lisinopril but not to hold her verapamil as we need to lower her pulse to allow preload filling time Social History: Unchanged from Admission Past Medical History: Unchanged from Admission Objective Active Medications: Acetaminophen (Tylenol Tab*) 975 mg PO 0400,1200,2000 [facility] Last Admin: 10/10/18 04:25 Dose: Not Given Apixaban (Eliquis*) 2.5 mg PO BID [facility] Last Admin: 10/10/18 07:44 Dose: 2.5 mg Bisacodyl (Dulcolax Supp*) 10 mg [place] DAILY PRN PRN Reason: constipation Buspirone HCl (Buspar Tab *) 15 mg PO TID PRN PRN Reason: ANXIETY Last Admin: 10/10/18 07:45 Dose: 15 mg Cholecalciferol (Vitamin D Tab*) 5,000 units PO DAILY [facility] Last Admin: 10/10/18 07:43 Dose: 5,000 units Cyclobenzaprine HCl (Flexeril Tab*) 10 mg PO TID PRN PRN Reason: SPASMS Last Admin: 10/08/18 02:52 Dose: 10 mg Diphenhydramine HCl (Benadryl Iv*) 25 mg IV Q6H PRN PRN Reason: itching Diphenhydramine HCl (Benadryl Po*) 25 mg PO Q6H PRN PRN Reason: itching Docusate Sodium (Colace Cap*) 100 mg PO BID [facility] Last Admin: 10/10/18 07:44 Dose: 100 mg Folic Acid (Folvite Tab*) 1 mg PO QAM [facility] Last Admin: 10/10/18 07:44 Dose: 1 mg Furosemide (Lasix Tab*) 40 mg PO DAILY PRN PRN Reason: edema Gabapentin (Neurontin Cap(*)) 300 mg PO TID [facility] Last Admin: 10/10/18 07:43 Dose: 300 mg Hydroxyurea (Hydrea Cap*) 1,000 mg PO BID [facility] Last Admin: 10/10/18 07:45 Dose: 1,000 mg Lactated Ringer's (Lactated Ringers 1000 Ml Bag*) 1,000 mls @ 100 mls/hr IV PER RATE [facility] Last Admin: 10/08/18 01:34 Dose: 100 mls/hr Ipratropium [place] (Ipratropium [place]) 0 ml BOTH NARES BID [facility] Last Admin: 10/10/18 07:45 Dose: 15 ml Lactulose (Lactulose*) 30 ml PO Q6H PRN PRN Reason: constipation Levothyroxine Sodium (Synthroid Tab*) 100 mcg PO DAILY@0600 [facility] Lisinopril (Prinivil Tab*) 10 mg PO DAILY [facility] Magnesium Hydroxide (Milk Of Magnesia Liq*) 30 ml PO BID [facility] Last Admin: 10/10/18 07:58 Dose: Not Given Magnesium Hydroxide (Milk Of Magnesia Liq*) 30 ml PO Q6H PRN PRN Reason: constipation Last Admin: 10/07/18 21:59 Dose: 30 ml Montelukast Sodium (Singulair Tab*) 10 mg PO DAILY [facility] Last Admin: 10/10/18 07:44 Dose: 10 mg Morphine Sulfate (Morphine Vial*) 2 mg IV Q2H PRN PRN Reason: PAIN Last Admin: 10/08/18 14:58 Dose: 2 mg Omeprazole (Prilosec Cap*) 20 mg PO BID [facility] Last Admin: 10/10/18 07:44 Dose: 20 mg Ondansetron HCl (Zofran Inj*) 4 mg IV Q6H PRN PRN Reason: nausea Ondansetron HCl (Zofran Odt Tab*) 4 mg PO Q6H PRN PRN Reason: NAUSEA Oxycodone HCl (Roxycodone Tab*) 10 mg PO Q4H PRN PRN Reason: PAIN Last Admin: 10/10/18 00:12 Dose: 10 mg Oxycodone/Acetaminophen (Percocet 5/325 Tab*) 1 tab PO Q4H PRN PRN Reason: PAIN Oxycodone/Acetaminophen (Percocet 5/325 Tab*) 2 tab PO Q4H PRN PRN Reason: PAIN Last Admin: 10/10/18 07:43 Dose: 2 tab Polyethylene Glycol/Electrolytes (Miralax*) 17 gm PO DAILY PRN PRN Reason: Constipation Pseudoephedrine HCl (Sudafed Tab*) 30 mg PO Q6H PRN PRN Reason: Allergy Symptoms Tramadol HCl (Ultram*) 50 mg PO Q6H PRN PRN Reason: PAIN Last Admin: 10/08/18 10:20 Dose: 50 mg Trazodone HCl (Desyrel Tab*) 25 mg PO BEDTIME PRN PRN Reason: insomnia Verapamil HCl (Calan Sr Cap*) 180 mg PO BID [facility] Last Admin: 10/09/18 21:14 Dose: 180 mg Vital Signs - 8 hr 10/10/18 10/10/18 10/10/18 00:37 02:37 04:09 Temperature 99.1 F Pulse Rate 117 Respiratory 18 16 16 Rate Blood Pressure 119/51 (mmHg) O2 Sat by Pulse 100 Oximetry 10/10/18 10/10/18 10/10/18 04:51 06:17 07:23 Temperature 99.7 F 98.3 F Pulse Rate 104 120 Respiratory 17 16 16 Rate Blood Pressure 128/49 99/78 (mmHg) O2 Sat by Pulse 95 96 Oximetry 10/10/18 07:43 Temperature Pulse Rate Respiratory 16 Rate Blood Pressure (mmHg) O2 Sat by Pulse Oximetry Oxygen Devices in Use Now: None Appearance: awake, alert,. no acute distress Eyes: No Scleral Icterus, PERRLA, - - EOMI Ears/Nose/Mouth/Throat: NL Teeth, Lips, Gums, Clear Oropharnyx, Mucous Membranes Moist Neck: NL Appearance and Movements; NL JVP, Trachea Midline Respiratory: Symmetrical Chest Expansion and Respiratory Effort, Clear to Auscultation Cardiovascular: NL Sounds; No Murmurs; No JVD, - - tacchcyardic but regular Abdominal: NL Sounds; No Tenderness; No Distention Extremities: - - both lower extremety in knee immobilizer Neurological: Alert and Oriented x 3 Result Diagrams: 10/10/18 05:32 10/10/18 05:32 Assess/Plan/Problems-Billing Assessment: 63 year old female s/p bilateral knee arthroplasty, medicine consulted for co- management found to be tacchcyardia consistent with reflex/rebound tacchycardia most likely withdrawal form calcium channel. - Patient Problems (1) Sinus tachycardia Current Visit: Yes Status: Acute Code(s): R00.0 - TACHYCARDIA, UNSPECIFIED SNOMED Code(s): 85563539 Comment: - EKG confirmed sinus tacchycardia (mixed secondary to hyperthyroid state and rebound from verapamil) - CXR no acute disease; her Hgb did drop but Not too concerning as long as it will stablize. - Thyroid pannel suggestive of hyperthyroid state with FT4 1.88. She did get her synthroid 112 mcg this morning. I will hold her am dose on 10/11/18 and start new dose of 100 mcg on 10/12/18 and follow up TSH/FT4 in 4 weeks at her PCP - Will increase verapamil to 180 mg bid - I did speak to the nurse that to hold her lisinopril but not to hold the verapamil.' - I would recommend to monitor for one more day and monitor BP and Pulse till am and repeat H/H in am. no need to repeat TSH/FT4 before 4 weeks. (2) Hypertension Current Visit: Yes Status: Acute Code(s): I10 - ESSENTIAL (PRIMARY) HYPERTENSION SNOMED Code(s): 34060340 Comment: - BP soft this morning secondary to sinus tachycardia, anemia. - D/C lisinopril but maintain verapamil 180 mg bid (this can be lowered once her Thyroid state is corrected ... in about 4 weeks if deemed nesseccary by her PCP) (3) History of total bilateral knee replacement Current Visit: Yes Status: Acute Code(s): Z96.653 - PRESENCE OF ARTIFICIAL KNEE JOINT, BILATERAL SNOMED Code(s): 3416265698540 Comment: - As per ortho (4) DVT prophylaxis Current Visit: Yes Status: Acute Code(s): SMD2363 - SNOMED Code(s): 679832753 Comment: - Eliquis will continue
[2018-10-10] MEDS ORDERED: Lisinopril TAB* 10 MG PO SCH (09:00)
[2018-10-10] MEDS: Verapamil SR CAP* 180 MG PO SCH ×2 (09:13→22:42)
--- NOTE | 2018-10-10 15:09 | PN ---
Progress Note - Progress Note Date of Service: 10/10/18 SOAP: Subjective: []Patient seen OOB in chair. Overall is feeling well but has elevated free T4 and has been tachycardic and hypotensive. Medications have been adjusted by Dr. Reyes and is recommending holding discharge until 10/11. Objective: [] Vital Signs Temp 98.3 F 10/10/18 07:23 Pulse 120 10/10/18 07:23 Resp 18 10/10/18 14:50 BP 99/78 10/10/18 07:23 Pulse Ox 96 10/10/18 07:23 Intake & Output 10/09/18 10/10/18 10/10/18 18:59 06:59 18:59 Intake Total 790 640 490 Output Total 684 807 8937 Balance 490 -110 -810 Intake: Oral 790 640 490 Output: Urine 267 569 2546 Other: Estimated Void Medium Medium # Bowel Movements 1 Estimated Stool Amount Large Medium Laboratory Results - last 24 hr 10/10/18 10/10/18 05:32 05:32 Hgb 9.3 L Hct 26 L Plt Count 452 H MPV 7.0 L Sodium 131 L Bilateral knee incisions are healing well, no drainage or erythema calves NT and soft +Df Bilateral ankles sensation and circulation intact distally Assessment: []s/p BTK arthroplasty POD #3 Sinus tachycardia with hyperthyroid state- managed by Dr. Reyes Plan: []PT WBAT BLE Eliquis 2.5 mg BID for DVT prophylaxis Home tomorrow if medically stable for discharge
[2018-10-11] MEDS: oxyCODONE/Acetamin 5/325 MG* TAB PO PRN ×3 (03:25→11:29)
[2018-10-11] MEDS: Acetaminophen TAB* 325 MG PO SCH ×2 (03:29→11:14)
[2018-10-11 05:58] LABS: Hematocrit 26 % (35-47); Mean Platelet Volume 6.8 fL (7.4-10.4); Platelet Count 526 10^3/ul (150-450)
[2018-10-11] MEDS ORDERED: Levothyroxine TAB* 100 MCG TAB PO SCH (06:00)
--- NOTE | 2018-10-11 07:20 | PN ---
Subjective Date of Service: 10/11/18 Interval History: Patient seen awake, alert. Feeling better today. denies any chest pain . able to transfer with assist feels less shaky. Pulse improved 99 this morning and BP improved with BP 138/61. Social History: Unchanged from Admission Past Medical History: Unchanged from Admission Objective Active Medications: Acetaminophen (Tylenol Tab*) 975 mg PO 0400,1200,2000 [facility] Last Admin: 10/11/18 03:29 Dose: Not Given Apixaban (Eliquis*) 2.5 mg PO BID [facility] Last Admin: 10/10/18 22:35 Dose: 2.5 mg Bisacodyl (Dulcolax Supp*) 10 mg [place] DAILY PRN PRN Reason: constipation Buspirone HCl (Buspar Tab *) 15 mg PO TID PRN PRN Reason: ANXIETY Last Admin: 10/10/18 07:45 Dose: 15 mg Cholecalciferol (Vitamin D Tab*) 5,000 units PO DAILY [facility] Last Admin: 10/10/18 07:43 Dose: 5,000 units Cyclobenzaprine HCl (Flexeril Tab*) 10 mg PO TID PRN PRN Reason: SPASMS Last Admin: 10/08/18 02:52 Dose: 10 mg Diphenhydramine HCl (Benadryl Iv*) 25 mg IV Q6H PRN PRN Reason: itching Diphenhydramine HCl (Benadryl Po*) 25 mg PO Q6H PRN PRN Reason: itching Docusate Sodium (Colace Cap*) 100 mg PO BID [facility] Last Admin: 10/10/18 22:37 Dose: 100 mg Folic Acid (Folvite Tab*) 1 mg PO QAM [facility] Last Admin: 10/10/18 07:44 Dose: 1 mg Furosemide (Lasix Tab*) 40 mg PO DAILY PRN PRN Reason: edema Gabapentin (Neurontin Cap(*)) 300 mg PO TID [facility] Last Admin: 10/10/18 22:37 Dose: 300 mg Hydroxyurea (Hydrea Cap*) 1,000 mg PO BID [facility] Last Admin: 10/10/18 22:37 Dose: 1,000 mg Ipratropium [place] (Ipratropium [place]) 0 ml BOTH NARES BID [facility] Last Admin: 10/10/18 22:35 Dose: 15 ml Lactulose (Lactulose*) 30 ml PO Q6H PRN PRN Reason: constipation Levothyroxine Sodium (Synthroid Tab*) 100 mcg PO DAILY@0600 [facility] Lisinopril (Prinivil Tab*) 10 mg PO DAILY [facility] Magnesium Hydroxide (Milk Of Magnesia Liq*) 30 ml PO Q6H PRN PRN Reason: constipation Last Admin: 10/07/18 21:59 Dose: 30 ml Montelukast Sodium (Singulair Tab*) 10 mg PO DAILY [facility] Last Admin: 10/10/18 07:44 Dose: 10 mg Morphine Sulfate (Morphine Vial*) 2 mg IV Q2H PRN PRN Reason: PAIN Last Admin: 10/08/18 14:58 Dose: 2 mg Omeprazole (Prilosec Cap*) 20 mg PO BID [facility] Last Admin: 10/10/18 23:37 Dose: 20 mg Ondansetron HCl (Zofran Inj*) 4 mg IV Q6H PRN PRN Reason: nausea Ondansetron HCl (Zofran Odt Tab*) 4 mg PO Q6H PRN PRN Reason: NAUSEA Oxycodone HCl (Roxycodone Tab*) 10 mg PO Q4H PRN PRN Reason: PAIN Last Admin: 10/10/18 22:36 Dose: 10 mg Oxycodone/Acetaminophen (Percocet 5/325 Tab*) 1 tab PO Q4H PRN PRN Reason: PAIN Oxycodone/Acetaminophen (Percocet 5/325 Tab*) 2 tab PO Q4H PRN PRN Reason: PAIN Last Admin: 10/11/18 03:25 Dose: 2 tab Polyethylene Glycol/Electrolytes (Miralax*) 17 gm PO DAILY PRN PRN Reason: Constipation Pseudoephedrine HCl (Sudafed Tab*) 30 mg PO Q6H PRN PRN Reason: Allergy Symptoms Tramadol HCl (Ultram*) 50 mg PO Q6H PRN PRN Reason: PAIN Last Admin: 10/08/18 10:20 Dose: 50 mg Trazodone HCl (Desyrel Tab*) 25 mg PO BEDTIME PRN PRN Reason: insomnia Verapamil HCl (Calan Sr Cap*) 180 mg PO BID [facility] Last Admin: 10/10/18 22:42 Dose: 180 mg Vital Signs - 8 hr 12/05/2110/11/18 10/11/18 23:35 00:37 03:25 Temperature 98.3 F Pulse Rate 110 Respiratory 16 16 18 Rate Blood Pressure 137/63 (mmHg) O2 Sat by Pulse 95 Oximetry 10/11/18 03:46 Temperature 98.5 F Pulse Rate 105 Respiratory 16 Rate Blood Pressure 131/61 (mmHg) O2 Sat by Pulse 97 Oximetry Oxygen Devices in Use Now: None Appearance: Awake, alert. no distress Eyes: PERRLA, - - EOMI Ears/Nose/Mouth/Throat: NL Teeth, Lips, Gums, Clear Oropharnyx Neck: NL Appearance and Movements; NL JVP, Trachea Midline Respiratory: Symmetrical Chest Expansion and Respiratory Effort, Clear to Auscultation Cardiovascular: NL Sounds; No Murmurs; No JVD, RRR, No Edema Abdominal: NL Sounds; No Tenderness; No Distention Extremities: - - both leg in bilateral knee immobilizer Neurological: Alert and Oriented x 3, NL Muscle Strength and Tone Result Diagrams: 10/11/18 05:26 10/10/18 05:32 Assess/Plan/Problems-Billing Assessment: 63 year old female s/p bilateral knee arthroplasty, medicine consulted for co- management found to be tacchcyardia consistent with reflex/rebound tacchycardia most likely withdrawal form calcium channel. - Patient Problems (1) Sinus tachycardia Current Visit: Yes Status: Acute Code(s): R00.0 - TACHYCARDIA, UNSPECIFIED SNOMED Code(s): 87070608 Comment: - EKG confirmed sinus tacchycardia (mixed secondary to hyperthyroid state and rebound from verapamil). CXR no acute disease; her Hgb did drop but Not too concerning as long as it will stablize. Thyroid pannel suggestive of hyperthyroid state with FT4 1.88. I did decrease her dose to 100 mcg daily. - Vitals improved with pulse 99, and SBP 130's - My recommendations: 1. to hold her am synthroid dose on 10/11/18 and start new dose of 100 mcg on 10/12/18. Follow up TSH/FT4 in 4 weeks at her PCP for further dose adjustment! I did send her Rx for the synthroid 2. Maintain her on Verapamil to 180 mg bid ( I did adjust her discharge med list to reflect the change to bid) 3. Keep her benzepril/HCTZ on hold until seen by PCP outpatient ( I did request to stop it on her discharge med list) 4. Medically stable for discharge with the above recommendations (2) Hypertension Current Visit: Yes Status: Acute Code(s): I10 - ESSENTIAL (PRIMARY) HYPERTENSION SNOMED Code(s): 73885999 Comment: - D/C lisinopril but maintain verapamil 180 mg bid (this can be lowered once her Thyroid state is corrected ... in about 4 weeks if deemed nesseccary by her PCP)! (3) History of total bilateral knee replacement Current Visit: Yes Status: Acute Code(s): Z96.653 - PRESENCE OF ARTIFICIAL KNEE JOINT, BILATERAL SNOMED Code(s): 4375293203956 Comment: - As per ortho (4) DVT prophylaxis Current Visit: Yes Status: Acute Code(s): XAU5941 - SNOMED Code(s): 396098485 Comment: - Eliquis will continue
[2018-10-11] MEDS: Cholecalciferol TAB* 1000 UNITS PO SCH (08:42)
[2018-10-11] MEDS: IPRATROPIUM BR 0.06% BOTH NARES SCH (08:42)
[2018-10-11] MEDS: Verapamil SR CAP* 180 MG PO SCH (08:43)
[2018-10-11] MEDS: Montelukast Sodium TAB* 10 MG PO SCH (08:43)
[2018-10-11] MEDS: Omeprazole CAP* 20 MG PO SCH (08:43)
[2018-10-11] MEDS: HydroxyUREA CAP* 500 MG CAP PO SCH (08:43)
[2018-10-11] MEDS: Docusate CAP* 100 MG PO SCH (08:43)
[2018-10-11] MEDS: Folic Acid TAB* 1 MG PO SCH (08:43)
[2018-10-11] MEDS: Apixaban* 2.5 MG TAB PO SCH (08:43)
[2018-10-11] MEDS: Gabapentin CAP(*) 300 MG PO SCH (08:43)
[2018-10-11] MEDS ORDERED: Lisinopril TAB* 10 MG PO SCH (09:00)
--- NOTE | 2018-10-11 10:20 | PN ---
Progress Note - Progress Note Date of Service: 10/11/18 SOAP: Subjective: Pt seen and examined at bedside. She states that she is feeling much better this AM. Pain is well controlled. Denies CP, SOB. Vital Signs: Temp Pulse Resp BP Pulse Ox 97.9 F 99 18 138/61 98 10/11/18 07:37 10/11/18 07:37 10/11/18 09:53 10/11/18 07:37 10/11/18 07:37 Laboratory Last Values Hgb 9.0 g/dl (12.0-16.0) L 10/11/18 05:26 Hct 26 % (35-47) L 10/11/18 05:26 Plt Count 526 10^3/ul (150-450) H D 10/11/18 05:26 MPV 6.8 fL (7.4-10.4) L 10/11/18 05:26 Sodium 131 mmol/L (135-145) L 10/10/18 05:32 Potassium 4.0 mmol/L (3.5-5.0) 10/09/18 06:38 Chloride 98 mmol/L (101-111) L 10/09/18 06:38 Carbon Dioxide 27 mmol/L (22-32) 10/09/18 06:38 Anion Gap 8 mmol/L (2-11) 10/09/18 06:38 BUN 11 mg/dL (6-24) 10/09/18 06:38 Creatinine 0.62 mg/dL (0.51-0.95) 10/09/18 06:38 Est GFR ( Amer) 117.3 (>60) 10/09/18 06:38 Est GFR (Non-Af Amer) 96.9 (>60) 10/09/18 06:38 BUN/Creatinine Ratio 17.7 (8-20) 10/09/18 06:38 Glucose 127 mg/dL (70-100) H 10/09/18 06:38 Calcium 8.6 mg/dL (8.6-10.3) 10/09/18 06:38 Magnesium 2.3 mg/dL (1.9-2.7) 10/09/18 06:38 TSH 1.10 mcIU/mL (0.34-5.60) 10/09/18 06:38 Free T4 1.88 ng/dL (0.61-1.12) H 10/09/18 06:38 Objective: Dressing C/D/I bilaterally. Calves soft, nontender. No edema. Sensation intact to light touch distally. DP pulses 2+ Assessment: 63 yo female s/p B/L TKA POD #4 Plan: OOB PT/OT WBAT Pain control DVT prophylaxis - Eliquis 2.5mg BID D/C home today if medically stable
[2018-10-11 12:07] VITALS: BP 124/62
[2018-10-12] MEDS ORDERED: Levothyroxine TAB* 100 MCG TAB PO SCH (06:00)
== END 2018-10-11 12:40 | disposition home or self-care (01) | DRG 302 ==
LOC: AA 05:44 → SSU 16:26
PROVIDERS: ADMIT Orthopaedic Surgery Adult Reconstructive Orthopaedic Surgery; ATTEND Orthopaedic Surgery Adult Reconstructive Orthopaedic Surgery
PROC: 0SRC069 Replacement of Right Knee Joint with Oxidized Zirconium on Polyethylene Synthetic Substitute, Cemented, Open Approach (ICD-10-PCS; 2018-10-07)
PROC: 0SRD069 Replacement of Left Knee Joint with Oxidized Zirconium on Polyethylene Synthetic Substitute, Cemented, Open Approach (ICD-10-PCS; principal; 2018-10-07 08:30)
DX: M17.0 Bilateral primary osteoarthritis of knee (principal); M06.9 Rheumatoid arthritis, unspecified; M06.4 Inflammatory polyarthropathy; D47.3 Essential (hemorrhagic) thrombocythemia; E03.9 Hypothyroidism, unspecified; R00.0 Tachycardia, unspecified; I10 Essential (primary) hypertension; I95.9 Hypotension, unspecified; E87.6 Hypokalemia; M25.762 Osteophyte, left knee; M25.761 Osteophyte, right knee; M85.862 Other specified disorders of bone density and structure, left lower leg; M85.861 Other specified disorders of bone density and structure, right lower leg; Z79.1 Long term (current) use of non-steroidal anti-inflammatories (NSAID); Z79.899 Other long term (current) drug therapy; Z88.5 Allergy status to narcotic agent; Z88.8 Allergy status to other drugs, medicaments and biological substances; Z83.3 Family history of diabetes mellitus; Z82.5 Family history of asthma and other chronic lower respiratory diseases; Z82.61 Family history of arthritis
CPT/HCPCS: 36415; 71046; 80048; 83735; 84300; 84439; 84443; 85014; 85018; 85049; 88305; 88311; 93005; A9270-GY; C1776; J0690; J1100; J1170; J1885; J2250; J2270; J2405; J2704; J2765; J2795; J3010

== ENCOUNTER 2023-04-16 05:29 | Inpatient (IN) ==
[2023-04-16] MEDS ORDERED: Lactated Ringers 1000 ml BAG 1,000 ML IV SCH ×3 (06:00→16:00)
[2023-04-16] MEDS ORDERED: Buffered Lidocaine 1% SYRIN 1 ml INTRADERM ONE ×2 (06:00)
[2023-04-16] MEDS ORDERED: Lidocaine 2% PF 5 ML VIAL ONE (06:17)
[2023-04-16] MEDS ORDERED: Heparin 5000 UNITS/ML 1 mL VIAL ONE (06:25)
[2023-04-16] MEDS ORDERED: Midazolam 2 mg/2 ml VIAL 1 mg/ml 2 ml VIAL (2 mg) ONE (06:38)
[2023-04-16] MEDS ORDERED: fentaNYL 250 mcg/5 ml 50 MCG/ML 5 ml VIAL (250 MCG) ONE (06:38)
[2023-04-16] MEDS ORDERED: Propofol 10 MG/ML 20 ML BTL ONE ×4 (06:38→12:25)
[2023-04-16] MEDS ORDERED: Rocuronium 50 mg VIAL 10 mg/ml 5 ml VIAL (50 mg) ONE ×5 (06:38→14:19)
[2023-04-16 06:43] LABS: Rapid COVID-19 Molecular Undetected (Undetected)
[2023-04-16] MEDS ORDERED: Ertapenem 1 GM in NS 0.9% 50 ML IVPB ONE (07:00)
[2023-04-16] MEDS ORDERED: Iohexol 180 (CONTRAST) 10 ML SDV IV ONE (07:01)
[2023-04-16] MEDS ORDERED: Bupivacaine 0.25% EPI 200,000 30 ML SDV ONE (07:01)
[2023-04-16] MEDS ORDERED: Scopolamine 1 mg/72hr PATCH ONE (07:22)
[2023-04-16] MEDS ORDERED: Dexamethasone IV 4 MG/ML VIAL 1 ml VIAL ONE (08:09)
[2023-04-16] MEDS ORDERED: Ondansetron 4 mg VIAL 2 MG/ML 2 ml VIAL ONE ×2 (08:09→14:37)
[2023-04-16] MEDS ORDERED: Hydrocortisone INJ 100 MG/2ML 2 ML VIAL ONE (08:10)
[2023-04-16] MEDS ORDERED: Ketamine HCL 50 mg/ml 10 ml VIAL (500 MG) ONE (08:16)
[2023-04-16] MEDS ORDERED: Phenylephrine 40 mcg/mL 10mL (400mcg) SYRINGE ONE (08:25)
[2023-04-16] MEDS ORDERED: Glycopyrrolate IV 0.2 MG/ML 1 ML VIAL ONE ×2 (08:25→09:49)
[2023-04-16] MEDS ORDERED: Acetaminophen IV 1 GM/100ML 1,000 MG/100 ML BAG IV ONE (08:53)
[2023-04-16] MEDS ORDERED: Artificial Tear OPHTH.OINT 3.5 GM ONE (09:03)
[2023-04-16] MEDS ORDERED: HYDROmorphone 0.5 MG/0.5 ML SYRINGE ONE (13:35)
[2023-04-16] MEDS ORDERED: fentaNYL 100 mcg/2 ml 50 MCG/ML VIAL ONE ×4 (15:39→16:56)
[2023-04-16] MEDS ORDERED: Naloxone 0.4 mg VIAL 0.4 mg/ml 1 ml VIAL IV PRN (15:42)
[2023-04-16] MEDS: fentaNYL 100 mcg/2 ml 50 MCG/ML VIAL IV PRN ×5 (15:46→16:08)
[2023-04-16] MEDS ORDERED: Morphine 4 MG/ML VIAL (1 ml) ONE (16:03)
[2023-04-16] MEDS: Morphine 4 MG/ML VIAL (1 ml) IV PRN ×2 (16:04→16:11)
[2023-04-16] MEDS: NS 0.9% 1000 ml BAG 1,000 ML IV SCH (18:29)
[2023-04-16] MEDS ORDERED: Piperacillin/Tazobac ADVAN 3.375 GM in NS 0.9% 100 ml BAG 100 ML IV SCH (18:30)
[2023-04-16 19:13] LABS: Urine Appearance Cloudy; Urine Bilirubin Negative (Negative); Urine Blood 3+ (Negative); Urine Color Yellow; Urine Glucose Negative (Negative); Urine Ketones 1+ (Negative); Urine Nitrite Negative (Negative); Urine Protein 2+(100 mg/dL) (Negative); Urine Specific Gravity 1.016 (1.002-1.030); Urine Urobilinogen Negative (Negative)
[2023-04-16 19:20] LABS: Urine Bacteria Absent (Absent); Urine Red Blood Cell 3+(>10/hpf) (Absent); Urine White Blood Cell 3+(>20/hpf) (Absent)
[2023-04-16] MEDS: HYDROmorphone 0.5 MG/0.5 ML SYRINGE IV PRN (20:36)
[2023-04-16] MEDS ORDERED: Enoxaparin 40 MG/0.4 ML SYR SUBCUT SCH (22:00)
[2023-04-17] MEDS: Piperacillin/Tazobac ADVAN 3.375 GM in NS 0.9% 100 ml BAG 100 ML IV SCH ×3 (04:05→19:41)
[2023-04-17] MEDS: NS 0.9% 1000 ml BAG 1,000 ML IV SCH (06:03)
[2023-04-17] MEDS: HYDROmorphone 0.5 MG/0.5 ML SYRINGE IV PRN ×4 (06:04→21:50)
[2023-04-17 06:21] LABS: ABS Lymphocytes 1.4 10^3/uL (1.0-4.8); ABS Monocytes 1.4 10^3/uL (0.0-0.9); ABS Neutrophils 13.1 10^3/uL (1.5-7.6); ABS Nucleated RBC 0.01 10^3/ul; Hematocrit 35.5 % (35-45); Hemoglobin 12.4 g/dL (11.5-14.3); Lymphocyte % 8.6 %; Mean Corpuscular Hemoglobin 37.7 pg (27-33); Mean Corpuscular Volume 107.8 fL (80-97); Mean Platelet Volume 8.2 fL (7.5-11.2); Nucleated Red Blood Cells % 0.1 /100 WBC (0.0-0.4); Platelet Count 363 10^3/uL (150-450); Red Blood Count 3.29 10^6/uL (3.63-4.92); Red Cell Distribution Width 13.4 % (12-17); White Blood Count 15.9 10^3/uL (3.8-11.8)
[2023-04-17 06:28] LABS: Creatinine, Serum 0.86 mg/dL (0.51-0.95); Potassium 3.5 mmol/L (3.5-5.0); eGFR CKD-EPI 73.5 (>60)
[2023-04-17] MEDS ORDERED: Potassium Chlor 20 meq TAB.ER PO ONE (10:03)
[2023-04-17] MEDS ORDERED: Oral Rinse (Biotene)(NF) 237 ML or 473 ML ORAL RINSE BTL MT SCH (13:00)
[2023-04-17] MEDS: CMCS: Solifenacin 5 mg TAB (NF) PO SCH (20:32)
[2023-04-17] MEDS: Oral Rinse (Biotene)(NF) 237 ML or 473 ML ORAL RINSE BTL MT PRN (20:34)
[2023-04-18] MEDS: HYDROmorphone 0.5 MG/0.5 ML SYRINGE IV PRN ×6 (01:20→23:20)
[2023-04-18] MEDS: Piperacillin/Tazobac ADVAN 3.375 GM in NS 0.9% 100 ml BAG 100 ML IV SCH ×3 (04:00→19:54)
[2023-04-18 05:57] LABS: Hematocrit 32.8 % (35-45); Hemoglobin 11.5 g/dL (11.5-14.3); Mean Corpuscular Hemoglobin 38.6 pg (27-33); Mean Corpuscular Hgb Conc 35.1 g/dL (31-36); Mean Corpuscular Volume 109.8 fL (80-97); Mean Platelet Volume 7.6 fL (7.5-11.2); Platelet Count 319 10^3/uL (150-450); Red Blood Count 2.98 10^6/uL (3.63-4.92); Red Cell Distribution Width 13.3 % (12-17); White Blood Count 14.2 10^3/uL (3.8-11.8)
[2023-04-18 06:07] LABS: Calcium 8.5 mg/dL (8.6-10.3); Creatinine, Serum 0.69 mg/dL (0.51-0.95); Potassium 3.5 mmol/L (3.5-5.0); eGFR CKD-EPI 94.5 (>60)
[2023-04-18] MEDS ORDERED: BENAZEPRIL HYDROCHLOROTHIAZIDE PO SCH (09:00)
[2023-04-18] MEDS: CMCS: Solifenacin 5 mg TAB (NF) PO SCH (20:07)
[2023-04-18] MEDS: Oral Rinse (Biotene)(NF) 237 ML or 473 ML ORAL RINSE BTL MT PRN (20:10)
[2023-04-19] MEDS: Piperacillin/Tazobac ADVAN 3.375 GM in NS 0.9% 100 ml BAG 100 ML IV SCH ×3 (03:40→21:22)
[2023-04-19] MEDS: HYDROmorphone 0.5 MG/0.5 ML SYRINGE IV PRN ×2 (05:35→10:42)
[2023-04-19 10:49] LABS: Hematocrit 34.2 % (35-45); Hemoglobin 12.1 g/dL (11.5-14.3); Mean Corpuscular Hemoglobin 38.4 pg (27-33); Mean Corpuscular Hgb Conc 35.5 g/dL (31-36); Mean Corpuscular Volume 108.3 fL (80-97); Mean Platelet Volume 7.4 fL (7.5-11.2); Platelet Count 379 10^3/uL (150-450); Red Blood Count 3.16 10^6/uL (3.63-4.92); Red Cell Distribution Width 13.1 % (12-17); White Blood Count 16.2 10^3/uL (3.8-11.8)
[2023-04-19 11:04] LABS: Creatinine, Serum 0.66 mg/dL (0.51-0.95); Potassium 3.2 mmol/L (3.5-5.0); eGFR CKD-EPI 95.5 (>60)
[2023-04-19 11:27] LABS: ABS Eosinophils 0.4 10^3/uL (0.0-0.5); ABS Lymphocytes 1.1 10^3/uL (1.0-4.8); ABS Monocytes 1.6 10^3/uL (0.0-0.9); Eosinophil % 2.7 %; Lymphocyte % 6.6 %
[2023-04-19] MEDS ORDERED: Metoclopramide 5 MG/ML VIAL (10 mg) IV SLOW PU PRN (15:09)
[2023-04-19] MEDS: Potassium Chlor 20 meq TAB.ER PO SCH ×2 (16:10→21:50)
[2023-04-19] MEDS: HYDROmorphone 1 MG/1 ML SYRINGE IV PRN (21:25)
[2023-04-19] MEDS: CMCS: Solifenacin 5 mg TAB (NF) PO SCH (21:50)
[2023-04-20] MEDS: HYDROmorphone 1 MG/1 ML SYRINGE IV PRN ×5 (00:30→20:12)
[2023-04-20] MEDS: Piperacillin/Tazobac ADVAN 3.375 GM in NS 0.9% 100 ml BAG 100 ML IV SCH ×3 (04:50→21:06)
[2023-04-20] MEDS: Metoclopramide 5 MG/ML VIAL (10 mg) IV SLOW PU PRN (04:52)
[2023-04-20 06:12] LABS: ABS Basophils 0.1 10^3/uL (0.0-0.1); ABS Eosinophils 0.7 10^3/uL (0.0-0.5); ABS Lymphocytes 2.2 10^3/uL (1.0-4.8); ABS Monocytes 1.7 10^3/uL (0.0-0.9); Eosinophil % 4.5 %; Lymphocyte % 15.1 %; Mean Corpuscular Hgb Conc 35.3 g/dL (31-36); Mean Corpuscular Volume 107.6 fL (80-97); Platelet Count 434 10^3/uL (150-450); Red Blood Count 3.16 10^6/uL (3.63-4.92); Red Cell Distribution Width 13.1 % (12-17); White Blood Count 14.8 10^3/uL (3.8-11.8)
[2023-04-20 06:15] LABS: Calcium 9.2 mg/dL (8.6-10.3); Creatinine, Serum 1.01 mg/dL (0.51-0.95); Magnesium 1.7 mg/dL (1.9-2.7); Potassium 3.9 mmol/L (3.5-5.0); eGFR CKD-EPI 60.6 (>60)
[2023-04-20] MEDS: Acetaminophen IV 1 GM/100ML 1,000 MG/100 ML BAG IV SCH ×3 (08:59→20:57)
[2023-04-20] MEDS: D5W 1/2 NS 40 Meq KCL 1000 ml 1,000 ML IV SCH (10:02)
[2023-04-20] MEDS: Ondansetron 4 mg VIAL 2 MG/ML 2 ml VIAL IV PRN (14:00)
[2023-04-20] MEDS: CMCS: Solifenacin 5 mg TAB (NF) PO SCH (21:01)
[2023-04-21] MEDS: HYDROmorphone 1 MG/1 ML SYRINGE IV PRN ×5 (01:42→21:48)
[2023-04-21] MEDS: D5W 1/2 NS 40 Meq KCL 1000 ml 1,000 ML IV SCH (01:48)
[2023-04-21] MEDS: Piperacillin/Tazobac ADVAN 3.375 GM in NS 0.9% 100 ml BAG 100 ML IV SCH ×3 (04:51→22:06)
[2023-04-21] MEDS: Metoclopramide 5 MG/ML VIAL (10 mg) IV SLOW PU PRN (05:07)
[2023-04-21] MEDS: Ondansetron 4 mg VIAL 2 MG/ML 2 ml VIAL IV PRN (06:54)
[2023-04-21 08:48] LABS: ABS Basophils 0.1 10^3/uL (0.0-0.1); ABS Eosinophils 0.6 10^3/uL (0.0-0.5); ABS Lymphocytes 1.7 10^3/uL (1.0-4.8); ABS Monocytes 1.5 10^3/uL (0.0-0.9); ABS Neutrophils 8.6 10^3/uL (1.5-7.6); ABS Nucleated RBC 0.01 10^3/ul; Eosinophil % 4.8 %; Hematocrit 34.3 % (35-45); Hemoglobin 11.9 g/dL (11.5-14.3); Lymphocyte % 13.3 %; Mean Corpuscular Hemoglobin 38.1 pg (27-33); Mean Corpuscular Hgb Conc 34.6 g/dL (31-36); Mean Platelet Volume 7.3 fL (7.5-11.2); Platelet Count 493 10^3/uL (150-450); Red Blood Count 3.12 10^6/uL (3.63-4.92); Red Cell Distribution Width 13.3 % (12-17); White Blood Count 12.5 10^3/uL (3.8-11.8)
[2023-04-21 08:52] LABS: Calcium 9.1 mg/dL (8.6-10.3); Creatinine, Serum 0.72 mg/dL (0.51-0.95)
[2023-04-21] MEDS: Acetaminophen IV 1 GM/100ML 1,000 MG/100 ML BAG IV SCH ×3 (11:46→22:06)
[2023-04-21] MEDS: CMCS: Solifenacin 5 mg TAB (NF) PO SCH (22:11)
[2023-04-22] MEDS: HYDROmorphone 1 MG/1 ML SYRINGE IV PRN ×5 (00:43→22:27)
[2023-04-22] MEDS: Piperacillin/Tazobac ADVAN 3.375 GM in NS 0.9% 100 ml BAG 100 ML IV SCH ×3 (03:59→19:59)
[2023-04-22] MEDS: Metoclopramide 5 MG/ML VIAL (10 mg) IV SLOW PU PRN (04:02)
[2023-04-22 05:51] LABS: ABS Basophils 0.1 10^3/uL (0.0-0.1); ABS Eosinophils 0.6 10^3/uL (0.0-0.5); ABS Lymphocytes 2.6 10^3/uL (1.0-4.8); ABS Monocytes 1.2 10^3/uL (0.0-0.9); ABS Nucleated RBC 0.01 10^3/ul; Eosinophil % 4.8 %; Hematocrit 33.2 % (35-45); Hemoglobin 11.4 g/dL (11.5-14.3); Lymphocyte % 21.1 %; Mean Corpuscular Hemoglobin 38.3 pg (27-33); Mean Corpuscular Hgb Conc 34.4 g/dL (31-36); Mean Corpuscular Volume 111.3 fL (80-97); Mean Platelet Volume 7.3 fL (7.5-11.2); Nucleated Red Blood Cells % 0.1 /100 WBC (0.0-0.4); Platelet Count 471 10^3/uL (150-450); Red Blood Count 2.98 10^6/uL (3.63-4.92); Red Cell Distribution Width 13.3 % (12-17); White Blood Count 12.5 10^3/uL (3.8-11.8)
[2023-04-22 05:56] LABS: Calcium 9.5 mg/dL (8.6-10.3); Creatinine, Serum 0.65 mg/dL (0.51-0.95); Magnesium 1.6 mg/dL (1.9-2.7); Phosphorus 4.2 mg/dL (2.5-5.0); eGFR CKD-EPI 95.8 (>60)
[2023-04-22] MEDS: Acetaminophen IV 1 GM/100ML 1,000 MG/100 ML BAG IV SCH ×3 (09:40→19:37)
[2023-04-22] MEDS ORDERED: Iohexol 350 (CONTRAST) 500 ML MDV IV ONE (13:47)
[2023-04-22] MEDS: CMCS: Solifenacin 5 mg TAB (NF) PO SCH (21:10)
[2023-04-22] MEDS: Ondansetron 4 mg VIAL 2 MG/ML 2 ml VIAL IV PRN (22:27)
[2023-04-23] MEDS: Acetaminophen IV 1 GM/100ML 1,000 MG/100 ML BAG IV SCH ×3 (02:52→19:42)
[2023-04-23] MEDS: HYDROmorphone 1 MG/1 ML SYRINGE IV PRN ×2 (02:52→23:19)
[2023-04-23] MEDS: Piperacillin/Tazobac ADVAN 3.375 GM in NS 0.9% 100 ml BAG 100 ML IV SCH ×3 (03:14→20:02)
[2023-04-23 07:31] LABS: ABS Basophils 0.1 10^3/uL (0.0-0.1); ABS Eosinophils 0.5 10^3/uL (0.0-0.5); ABS Lymphocytes 2.2 10^3/uL (1.0-4.8); ABS Monocytes 1.1 10^3/uL (0.0-0.9); ABS Neutrophils 7.5 10^3/uL (1.5-7.6); Eosinophil % 4.4 %; Hematocrit 34.1 % (35-45); Hemoglobin 11.7 g/dL (11.5-14.3); Lymphocyte % 19.2 %; Mean Corpuscular Hemoglobin 37.7 pg (27-33); Mean Corpuscular Hgb Conc 34.4 g/dL (31-36); Mean Corpuscular Volume 109.7 fL (80-97); Mean Platelet Volume 7.1 fL (7.5-11.2); Platelet Count 542 10^3/uL (150-450); Red Blood Count 3.11 10^6/uL (3.63-4.92); Red Cell Distribution Width 13.3 % (12-17); White Blood Count 11.3 10^3/uL (3.8-11.8)
[2023-04-23] MEDS: CMCS: Solifenacin 5 mg TAB (NF) PO SCH (20:09)
[2023-04-23] MEDS: Ondansetron 4 mg VIAL 2 MG/ML 2 ml VIAL IV PRN (23:13)
[2023-04-24] MEDS: Acetaminophen IV 1 GM/100ML 1,000 MG/100 ML BAG IV SCH ×2 (03:32→11:43)
[2023-04-24] MEDS: Piperacillin/Tazobac ADVAN 3.375 GM in NS 0.9% 100 ml BAG 100 ML IV SCH ×2 (04:01→12:13)
[2023-04-24] MEDS: Oral Rinse (Biotene)(NF) 237 ML or 473 ML ORAL RINSE BTL MT PRN (08:30)
[2023-04-24] MEDS ORDERED: Fluticasone NASAL SPRAY 50MCG 16 gm SPRAY BTL BOTH NARES SCH (14:30)
[2023-04-24 14:31] VITALS: BP 113/68
== END 2023-04-24 17:47 | disposition home or self-care (01) | DRG 330 ==
LOC: OR 05:29 → SSU 18:12
PROVIDERS: ADMIT Surgery Surgical Critical Care; ATTEND Surgery Surgical Critical Care